=== PATIENT | male | born 1975 | race Caucasian/White ===

== ENCOUNTER 2017-09-06 22:33 | Emergency (ER) | payer MEDICAID, OTHER ==
[~2017-09-06] VITALS: Ht 167.6 cm; Wt 91.0 kg
[2017-09-06 22:34] VITALS: BP 142/85; PULSE 92; RESP 16; TEMP 98.6; O2SAT 98
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
[2017-09-06] MEDS ORDERED: ACETAMINOPHEN/HYDROcodone 325 MG/5 MG TAB PO ONE (23:30)
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
[2017-09-07] MEDS ORDERED: IBUP1TAB7 PO (00:44)
[2017-09-07] MEDS ORDERED: NORC5TAB PO (00:44)
[2017-09-07] MEDS ORDERED: KETOROLAC TROMETHAMINE 60 MG/2 ML (IM) VIAL IM ONE (00:45)
== END 2017-09-07 01:28 | disposition home or self-care (01) ==
LOC: NEPD 22:33
DX: S93.402A Sprain of unspecified ligament of left ankle, initial encounter (principal); X50.0XXA Overexertion from strenuous movement or load, initial encounter; Y93.89 Activity, other specified
CPT/HCPCS: 29515; 73610; 96372; 99284; E0113; J1885; L1906